=== PATIENT | female | born 1945 | race Caucasian/White ===

== ENCOUNTER 2016-08-04 05:27 | Inpatient (IN) | payer MEDICARE, OTHER ==
[~2016-08-04 05:27] MED LIST: FENOFIBRIC ACI135 M1 PO; LISINOPRIL-HCT1 EAC3 PO; MAGNESIUM OXID400 M1 PO; MULTIVITAMINS1 EAC6 PO; PROTONIX40 M2 PO; ROSUVASTATIN CA20 MG PO; VITAMIN D31000 UNI3 PO
[2016-08-04 06:37] LABS: ANION GAP 13 mmol/L (0-20); BLOOD UREA NITROGEN 7 mg/dl (6-24); CALCIUM 8.9 mg/dl (8.5-10.5); CARBON DIOXIDE-VENOUS 24 mmol/L (22-32); CHLORIDE 96 mmol/l (96-110); GLUCOSE 127 mg/dL (70-110); POTASSIUM 3.5 mmol/L (3.7-5.1); SODIUM 129 mmol/L (135-145); eGFR VALUE FOR BLACK 87 mL/Min
--- NOTE | 2016-08-04 20:33 | NUR ---
VN ROUNDING DEFERRED PATIENT IS SLEEPING AT THIS TIME AND THE DO NOT DISTURB IS ON THE VN DIRECTORY FOR THIS ROOM. CHART REVIEW IN PROGRESS.
[2016-08-05 04:57] LABS: BASO % 0.1 % (0-2); EOS % 0.1 % (0-7); HCT-HEMATOCRIT 32.6 % (34.0-49.0); HGB-HEMOGLOBIN 11.2 gm/dl (12.0-15.5); IMMATURE GRANULOCYTES ABSOLUTE 0.02 tho/cmm (0-0.03); IMMATURE GRANULOCYTES PERCENT 0.2 % (0-0.3); LYMPH % 14.4 % (20-45); LYMPH ABSOLUTE COUNT 1.5 tho/cmm (0.8-4.5); MCHC MEAN CORPUSCULAR HGB CONC 34.4 % (32.0-36.0); MCV (MEAN CELL VOLUME) 84.5 fl (82.0-96.0); MEAN PLATELET VOLUME 9.1 cmc (9.4-12.4); MONO % 8.5 % (0-12); MONOCYTE ABSOLUTE COUNT 0.9 tho/cmm (0.0-1.2); NEUTROPHILS % 76.7 % (40-80); PLATELET COUNT 300 tho/cmm (150-450); RED BLOOD COUNT 3.86 mil/cmm (4.00-5.20); RED CELL DISTRIBUTION WIDTH 12.3 % (12.4-16.4); WHITE BLOOD COUNT 10.5 tho/cmm (4.0-10.0)
[2016-08-05 05:28] LABS: ANION GAP 11 mmol/L (0-20); BLOOD UREA NITROGEN 8 mg/dl (6-24); CALCIUM 8.3 mg/dl (8.5-10.5); CARBON DIOXIDE-VENOUS 26 mmol/L (22-32); CHLORIDE 102 mmol/l (96-110); CREATININE 0.83 mg/dl (0.50-1.10); GLUCOSE 132 mg/dL (70-110); SODIUM 134 mmol/L (135-145); eGFR VALUE FOR BLACK 83 mL/Min
[2016-08-05 05:30] LABS: POTASSIUM 4.5 mmol/L (3.7-5.1)
[2016-08-07 05:40] LABS: ANION GAP 9 mmol/L (0-20); BLOOD UREA NITROGEN 3 mg/dl (6-24); CALCIUM 8.3 mg/dl (8.5-10.5); CARBON DIOXIDE-VENOUS 29 mmol/L (22-32); CHLORIDE 105 mmol/l (96-110); CREATININE 0.59 mg/dl (0.50-1.10); GLUCOSE 133 mg/dL (70-110); POTASSIUM 4.2 mmol/L (3.7-5.1); SODIUM 139 mmol/L (135-145); eGFR VALUE FOR BLACK >90 mL/Min
--- NOTE | 2016-08-08 20:12 | NUR ---
VN ROUNDING/LEADER ROUNDING NOTE-PATIENT LAYING IN BED WITH PAIN STAYING CONTROLLED. DAUGHTER IS AT HER BEDSIDE. STATES THE HEADACHE IS BETTER. PATIENT HAS NO CONCERNS OR QUESTIONS. HOPING SHE GOES HOME TOMORROW. I SAID THAT MAYBE BUT SHE IS STILL ONLY ON CLEAR LIQUIDS SO IT MAY BE CLOSER TO WEDNESDAY. SHE HAS HAD GAS BUT NO BM. CHART REVIEWED.
[2016-08-09 05:18] LABS: BASO % 0.8 % (0-2); BASO ABSOLUTE COUNT 0.1 tho/cmm (0.0-0.2); EOSINOPHIL ABSOLUTE COUNT 0.5 tho/cmm (0.0-0.7); HCT-HEMATOCRIT 32.4 % (34.0-49.0); HGB-HEMOGLOBIN 11.3 gm/dl (12.0-15.5); IMMATURE GRANULOCYTES ABSOLUTE 0.02 tho/cmm (0-0.03); IMMATURE GRANULOCYTES PERCENT 0.3 % (0-0.3); LYMPH % 31.3 % (20-45); LYMPH ABSOLUTE COUNT 2.2 tho/cmm (0.8-4.5); MCH (MEAN CORPUSCULAR HGB) 29.4 pg (28.0-32.0); MCHC MEAN CORPUSCULAR HGB CONC 34.9 % (32.0-36.0); MCV (MEAN CELL VOLUME) 84.2 fl (82.0-96.0); MEAN PLATELET VOLUME 8.8 cmc (9.4-12.4); MONO % 8.8 % (0-12); MONOCYTE ABSOLUTE COUNT 0.6 tho/cmm (0.0-1.2); NEUTROPHIL ABSOLUTE COUNT 3.7 tho/cmm (1.6-8.0); NEUTROPHIL-AUTOMATED 3.7 tho/cmm (1.6-8.0); NEUTROPHILS % 51.8 % (40-80); PLATELET COUNT 373 tho/cmm (150-450); RED BLOOD COUNT 3.85 mil/cmm (4.00-5.20); RED CELL DISTRIBUTION WIDTH 12.2 % (12.4-16.4); WHITE BLOOD COUNT 7.1 tho/cmm (4.0-10.0)
[2016-08-09 05:37] LABS: ANION GAP 10 mmol/L (0-20); BLOOD UREA NITROGEN 3 mg/dl (6-24); CALCIUM 8.9 mg/dl (8.5-10.5); CARBON DIOXIDE-VENOUS 27 mmol/L (22-32); CHLORIDE 111 mmol/l (96-110); CREATININE 0.75 mg/dl (0.50-1.10); GLUCOSE 125 mg/dL (70-110); POTASSIUM 4.4 mmol/L (3.7-5.1); SODIUM 144 mmol/L (135-145); eGFR VALUE FOR BLACK >90 mL/Min
[2016-08-10 10:29] LABS: BASO % 0.7 % (0-2); BASO ABSOLUTE COUNT 0.1 tho/cmm (0.0-0.2); EOS % 4.8 % (0-7); EOSINOPHIL ABSOLUTE COUNT 0.5 tho/cmm (0.0-0.7); HCT-HEMATOCRIT 41.2 % (34.0-49.0); HGB-HEMOGLOBIN 14.2 gm/dl (12.0-15.5); IMMATURE GRANULOCYTES ABSOLUTE 0.06 tho/cmm (0-0.03); IMMATURE GRANULOCYTES PERCENT 0.6 % (0-0.3); LYMPH % 25.6 % (20-45); LYMPH ABSOLUTE COUNT 2.6 tho/cmm (0.8-4.5); MCHC MEAN CORPUSCULAR HGB CONC 34.5 % (32.0-36.0); MCV (MEAN CELL VOLUME) 84.1 fl (82.0-96.0); MEAN PLATELET VOLUME 9.1 cmc (9.4-12.4); MONO % 8.9 % (0-12); MONOCYTE ABSOLUTE COUNT 0.9 tho/cmm (0.0-1.2); NEUTROPHILS % 59.4 % (40-80); PLATELET COUNT 471 tho/cmm (150-450); RED CELL DISTRIBUTION WIDTH 12.3 % (12.4-16.4); WHITE BLOOD COUNT 10.1 tho/cmm (4.0-10.0)
[2016-08-10 10:41] LABS: ANION GAP 13 mmol/L (0-20); BLOOD UREA NITROGEN 11 mg/dl (6-24); CALCIUM 9.5 mg/dl (8.5-10.5); CARBON DIOXIDE-VENOUS 26 mmol/L (22-32); CHLORIDE 107 mmol/l (96-110); GLUCOSE 142 mg/dL (70-110); POTASSIUM 4.2 mmol/L (3.7-5.1); SODIUM 142 mmol/L (135-145); eGFR VALUE FOR BLACK 56 mL/Min
[2016-08-10 10:44] LABS: CREATININE 1.16 mg/dl (0.50-1.10)
--- NOTE | 2016-08-10 16:35 | NUR ---
VIRTUAL CARE NOTE: ATTEMPTED TO ROUND W/ PT AT THIS TIME, HOWEVER, SHE IS WATCHING A TV PROGRAM AND REQUESTS A VISIT AT A LATER TIME. WILL MONITOR. ELECTRONIC CHART REVIEWED.
--- NOTE | 2016-08-10 19:15 | NUR ---
VIRTUAL CARE NOTE: PT. REQUEST THIS NURSE TO CHECK ON HER LATER DUE A FAVORITE TV WAS ON. REQUEST GRANTED. WILL CONTINUE TO MONITOR.
--- NOTE | 2016-08-11 22:30 | NUR ---
VIRTUAL CARE NOTE: PT. WALKING WITH FAMILY IN THE HALLWAYS THIS NURSE WAS ON THE UNIT. STATES WAS DOING WELL. INSTRUCTED TO CALL US FOR FURTHER NEEDS. STATES VERBAL AGREEMENT.
[2016-08-12 05:10] LABS: ANION GAP 13 mmol/L (0-20); BLOOD UREA NITROGEN 7 mg/dl (6-24); CALCIUM 9.3 mg/dl (8.5-10.5); CARBON DIOXIDE-VENOUS 25 mmol/L (22-32); CHLORIDE 108 mmol/l (96-110); CREATININE 0.77 mg/dl (0.50-1.10); GLUCOSE 107 mg/dL (70-110); SODIUM 142 mmol/L (135-145); eGFR VALUE FOR BLACK >90 mL/Min
[2016-08-14 04:50] LABS: ANION GAP 12 mmol/L (0-20); BLOOD UREA NITROGEN 8 mg/dl (6-24); CALCIUM 9.4 mg/dl (8.5-10.5); CARBON DIOXIDE-VENOUS 27 mmol/L (22-32); CHLORIDE 107 mmol/l (96-110); CREATININE 0.86 mg/dl (0.50-1.10); GLUCOSE 123 mg/dL (70-110); SODIUM 142 mmol/L (135-145); eGFR VALUE FOR BLACK 80 mL/Min
--- NOTE | 2016-08-14 16:11 | NUR ---
VIRTUAL CARE NOTE: PT STATES SHE IS HAVING AN AWFUL DAY, STATES SHE IS TERRIBLY NAUSEATED TODAY. ORDER REVIEWED NGT PRN VOMITING DISCUSSED W/ PT. PT RELUCTANT TO HAVE NGT. PT VOICES CONCERN THAT DR GOVEA IS OFF FOR THE WEEKEND AND WOULD LIKE TO KNOW WHO WILL BE OVERSEEING HER CARE- OFFICE CALLED TO CHECK ONCALL PROVIDER- PT INFORMED. DISCUSSED IMPORTANCE OF AMBULATION TO STIMULATE GI MOTILITY. QUESTIONS AND CONCERNS ADDRESSED, PT DENIES FURTHER QUESTIONS/CONCERNS AT THIS TIME. VN WILL CONTINUE TO MONITOR RECORD AND FOLLOW W/ PT
[2016-08-16 11:15] LABS: BASO % 0.7 % (0-2); BASO ABSOLUTE COUNT 0.1 tho/cmm (0.0-0.2); EOS % 3.1 % (0-7); EOSINOPHIL ABSOLUTE COUNT 0.2 tho/cmm (0.0-0.7); HCT-HEMATOCRIT 31.2 % (34.0-49.0); HGB-HEMOGLOBIN 10.4 gm/dl (12.0-15.5); IMMATURE GRANULOCYTES ABSOLUTE 0.02 tho/cmm (0-0.03); IMMATURE GRANULOCYTES PERCENT 0.3 % (0-0.3); LYMPH % 21.6 % (20-45); LYMPH ABSOLUTE COUNT 1.6 tho/cmm (0.8-4.5); MCH (MEAN CORPUSCULAR HGB) 29.2 pg (28.0-32.0); MCHC MEAN CORPUSCULAR HGB CONC 33.3 % (32.0-36.0); MCV (MEAN CELL VOLUME) 87.6 fl (82.0-96.0); MEAN PLATELET VOLUME 8.9 cmc (9.4-12.4); MONO % 8.1 % (0-12); MONOCYTE ABSOLUTE COUNT 0.6 tho/cmm (0.0-1.2); NEUTROPHIL ABSOLUTE COUNT 4.9 tho/cmm (1.6-8.0); NEUTROPHIL-AUTOMATED 4.9 tho/cmm (1.6-8.0); NEUTROPHILS % 66.2 % (40-80); PLATELET COUNT 442 tho/cmm (150-450); RED BLOOD COUNT 3.56 mil/cmm (4.00-5.20); RED CELL DISTRIBUTION WIDTH 12.5 % (12.4-16.4); WHITE BLOOD COUNT 7.5 tho/cmm (4.0-10.0)
[2016-08-16 11:23] LABS: ANION GAP 11 mmol/L (0-20); BLOOD UREA NITROGEN 11 mg/dl (6-24); CALCIUM 9.8 mg/dl (8.5-10.5); CARBON DIOXIDE-VENOUS 30 mmol/L (22-32); CHLORIDE 107 mmol/l (96-110); CREATININE 1.12 mg/dl (0.50-1.10); GLUCOSE 119 mg/dL (70-110); MAGNESIUM 1.8 mg/dl (1.8-2.6); POTASSIUM 4.2 mmol/L (3.7-5.1); SODIUM 144 mmol/L (135-145); eGFR VALUE FOR BLACK 58 mL/Min
--- NOTE | 2016-08-16 18:55 | NUR ---
VIRTUAL CARE NOTE: REVIEWED PLAN OF CARE WITH PT. DAUGHTER IN ROOM. THEY WERE PLANNING ON GOING FOR A WALK. PT HAS EATEN WHAT SOUNDS LIKE A FEW MEALS OF SOLID FOOD TODAY AND IS DOING OK. STILL BLOATED, BUT NOT WORSE. HAD A BM. WE DICUSSED THE NG TO HELP DECOMPRESS. SHE WAS FEELING SOMEWHAT MORE AGREEABLE TO THIS IF IT WILL HELP HER GET HOME. SHE WILL TALK WITH DR. GOVEA ABOUT IT TOMORROW. JOÃO ORDERED LABS, SAID HE WOULD ALSO WAIT FOR XUAN TO SEE IF HE WANTED ANOTHER XRAY. PT DENIES ANY OTHER NEEDS OR CONCERNS. STATES OVERALL THINGS SEEM TO BE IMPROVING AND SHE IS READY TO GO HOME. ENCOURAGED FALL PRECAUTIONS AND TO NOTIFY STAFF FOR ANY NEEDS. PT V/U. WILL CONTINUE WITH CHART REVIEW.
[2016-08-18 05:32] LABS: ALB/GLOB RATIO 0.7 (0.8-2.0); ALBUMIN 2.7 g/dl (3.5-5.0); ALKALINE PHOSPHATASE 78 U/L (33-138); ALT/SGPT 36 U/L (12-78); ANION GAP 14 mmol/L (0-20); AST/SGOT 27 U/L (10-40); BILIRUBIN,TOTAL 0.4 mg/dl (0-1.5); BLOOD UREA NITROGEN 15 mg/dl (6-24); CALCIUM 8.7 mg/dl (8.5-10.5); CARBON DIOXIDE-VENOUS 27 mmol/L (22-32); CHLORIDE 106 mmol/l (96-110); CREATININE 1.27 mg/dl (0.50-1.10); MAGNESIUM 1.7 mg/dl (1.8-2.6); PHOSPHOROUS 5.7 mg/dl (2.5-4.9); POTASSIUM 4.1 mmol/L (3.7-5.1); PREALBUMIN 16.2 mg/dl (20.0-40.0); SODIUM 143 mmol/L (135-145); eGFR VALUE FOR BLACK 50 mL/Min
[2016-08-18 05:37] LABS: GLUCOSE 183 mg/dL (70-110)
--- NOTE | 2016-08-18 14:21 | NUR ---
1243-VIRTUAL NURSING NOTE-ROUNDING ON PATIENT. STATES CONTINUES TO HAVE PAIN RATING IT AT 7-8 IN STOMACH AREA. NOTIFIED RN. Parth ROMEO RN
[2016-08-19 06:46] LABS: BLOOD UREA NITROGEN 18 mg/dl (6-24); CARBON DIOXIDE-VENOUS 23 mmol/L (22-32); CHLORIDE 116 mmol/l (96-110); SODIUM 148 mmol/L (135-145)
[2016-08-19 06:48] LABS: ANION GAP 12 mmol/L (0-20); GLUCOSE 90 mg/dL (70-110)
[2016-08-19 06:49] LABS: CREATININE 0.57 mg/dl (0.50-1.10); eGFR VALUE FOR BLACK >90 mL/Min
[2016-08-19 06:50] LABS: CALCIUM 6.3 mg/dl (8.5-10.5)
--- NOTE | 2016-08-19 08:15 | NUR ---
0814-DR GOVEA NOTIFIED OF POTASSIUM AND CALCIUM LEVELS. HE SAID HE WOULD TAKE CARE OF THEM WHEN HE COMES IN THIS MORNING. Parth ROMEO RN
--- NOTE | 2016-08-19 20:30 | NUR ---
DORCAS THOMAS NOTE-VISITED WITH PATIENT AND SOME OF HER FAMILY. HAD A FEW LAUGHS AND TALKED ABOUT THE NG,EPIDURAL,AND SHE STATES SHE IS NOT WALKING EASILY SHE WAS BEFORE SURGERY. THE PAIN IS STAYING SOMEWHAT CONTROLLED WITH THE EPIDURAL BUT DAUGHTER STATES SHE STILL NEEDS MORPHINE Q 4 HOURS TOO. PATIENT ASKED IF I WOULD PHYSICALLY COME SEE HER TONIGHT AND I TOLD HER I WOULD TRY
[2016-08-20 05:48] LABS: ANION GAP 11 mmol/L (0-20); BLOOD UREA NITROGEN 19 mg/dl (6-24); CARBON DIOXIDE-VENOUS 30 mmol/L (22-32); CHLORIDE 105 mmol/l (96-110); CREATININE 0.68 mg/dl (0.50-1.10); GLUCOSE 110 mg/dL (70-110); POTASSIUM 3.7 mmol/L (3.7-5.1); SODIUM 142 mmol/L (135-145); eGFR VALUE FOR BLACK >90 mL/Min
[2016-08-20 05:50] LABS: CALCIUM 8.6 mg/dl (8.5-10.5)
--- NOTE | 2016-08-20 18:49 | NUR ---
VIRTUAL CARE NOTE: REVIEWED PLAN OF CARE WITH PT/SPOUSE. DENIES ANY CONCERNS OR COMPLAINTS AT THIS TIME. DENIES GAS BUT STILL FEELS BETTER THAN SHE DID PRIOR TO THE SECOND SURGERY. PT DENIED ANY MEDICATION QUESTIONS OR S/E. JUST VOICED SHE WAS READY TO GO HOME. SUPPORT GIVEN TO KEEP UP THE GOOD WORK WITH AMBULATION AND INCENTIVE. ENCOURAGED FALL PRECAUTIONS AND TO NOTIFY STAFF FOR ANY NEEDS. PT V/U. WILL CONTINUE WITH CHART REVIEW.
[2016-08-21 05:51] LABS: HGB-HEMOGLOBIN 8.4 gm/dl (12.0-15.5); PLATELET COUNT 556 tho/cmm (150-450)
[2016-08-21 06:02] LABS: ANION GAP 12 mmol/L (0-20); BLOOD UREA NITROGEN 17 mg/dl (6-24); CALCIUM 8.6 mg/dl (8.5-10.5); CARBON DIOXIDE-VENOUS 31 mmol/L (22-32); CHLORIDE 102 mmol/l (96-110); CREATININE 0.61 mg/dl (0.50-1.10); GLUCOSE 160 mg/dL (70-110); MAGNESIUM 1.9 mg/dl (1.8-2.6); PHOSPHOROUS 2.4 mg/dl (2.5-4.9); POTASSIUM 3.7 mmol/L (3.7-5.1); SODIUM 141 mmol/L (135-145); eGFR VALUE FOR BLACK >90 mL/Min
--- NOTE | 2016-08-21 11:32 | NUR ---
FAMILY VERY UPSET THAT PATIENT DOES NOT SEEM TO BE IMPROVING. PATIENT CONSTANTLY C/O PAIN OR ANXIETY. FAMILY REQUESTS SECOND SURGICAL OPINION. DR. GOVEA NURSE AWARE.
[2016-08-21 18:03] LABS: BASO % 0.3 % (0-2); EOS % 2.8 % (0-7); EOSINOPHIL ABSOLUTE COUNT 0.3 tho/cmm (0.0-0.7); HCT-HEMATOCRIT 26.5 % (34.0-49.0); HGB-HEMOGLOBIN 8.6 gm/dl (12.0-15.5); IMMATURE GRANULOCYTES ABSOLUTE 0.05 tho/cmm (0-0.03); IMMATURE GRANULOCYTES PERCENT 0.5 % (0-0.3); LYMPH % 11.5 % (20-45); LYMPH ABSOLUTE COUNT 1.1 tho/cmm (0.8-4.5); MCH (MEAN CORPUSCULAR HGB) 28.3 pg (28.0-32.0); MCHC MEAN CORPUSCULAR HGB CONC 32.5 % (32.0-36.0); MCV (MEAN CELL VOLUME) 87.2 fl (82.0-96.0); MEAN PLATELET VOLUME 9.8 cmc (9.4-12.4); MONO % 12.5 % (0-12); MONOCYTE ABSOLUTE COUNT 1.2 tho/cmm (0.0-1.2); NEUTROPHIL ABSOLUTE COUNT 6.7 tho/cmm (1.6-8.0); NEUTROPHIL-AUTOMATED 6.7 tho/cmm (1.6-8.0); NEUTROPHILS % 72.4 % (40-80); PLATELET COUNT 620 tho/cmm (150-450); RED BLOOD COUNT 3.04 mil/cmm (4.00-5.20); RED CELL DISTRIBUTION WIDTH 12.5 % (12.4-16.4); WHITE BLOOD COUNT 9.2 tho/cmm (4.0-10.0)
[2016-08-21 18:15] LABS: ALB/GLOB RATIO 0.9 (0.8-2.0); ALBUMIN 3.1 g/dl (3.5-5.0); ALKALINE PHOSPHATASE 77 U/L (33-138); ALT/SGPT 15 U/L (12-78); ANION GAP 11 mmol/L (0-20); AST/SGOT 12 U/L (10-40); BILIRUBIN,TOTAL 0.5 mg/dl (0-1.5); BLOOD UREA NITROGEN 14 mg/dl (6-24); C-REACTIVE PROTEIN 14.2 mg/dl (0-0.9); CARBON DIOXIDE-VENOUS 31 mmol/L (22-32); CHLORIDE 102 mmol/l (96-110); CREATININE 0.54 mg/dl (0.50-1.10); GLUCOSE 130 mg/dL (70-110); POTASSIUM 3.3 mmol/L (3.7-5.1); SODIUM 141 mmol/L (135-145); eGFR VALUE FOR BLACK >90 mL/Min
--- NOTE | 2016-08-21 21:24 | NUR ---
VIRTUAL CARE NOTE: ASSESSMENT DEFERRED. PT. SLEEPING.
[2016-08-22 06:21] LABS: ANION GAP 11 mmol/L (0-20); BLOOD UREA NITROGEN 12 mg/dl (6-24); CALCIUM 8.9 mg/dl (8.5-10.5); CARBON DIOXIDE-VENOUS 33 mmol/L (22-32); CHLORIDE 104 mmol/l (96-110); CREATININE 0.58 mg/dl (0.50-1.10); GLUCOSE 133 mg/dL (70-110); SODIUM 145 mmol/L (135-145); eGFR VALUE FOR BLACK >90 mL/Min
--- NOTE | 2016-08-22 16:10 | NUR ---
VIRTUAL CARE NOTE: PT AWAKE, RESTING IN BED, FAMILY AT BEDSIDE. PT VERBALIZES NOT HAVING A GOOD DAY. PT STATES PASSING VERY LITTLE GAS BUT HAD X2 LOOSE BMS TODAY. ENC PT TO AMBULATE. ENC IS 1X Q1H WAKE-PT ABLE TO DEMONSTRATE. ENCOURAGEMENT GIVEN. PT DENIES QUESTIONS/CONCERNS AT THIS TIME. VN WILL CONTINUE TO MONITOR RECORD AND FOLLOW W/ PT
--- NOTE | 2016-08-22 21:36 | NUR ---
VIRTUAL CARE NOTE: PT. IN BED WITH FAMILY AT SIDE. PT. STATES SHE'S JUST NOT FEELING THE BEST. VERBAL ENCOURAGEMENT GIVEN THAT SHE IS DOING ALL THAT SHE IS ABLE TO DO FOR IMPROVEMENT. INSTRUCTED TO CALL FOR FURTHER NEEDS. STATES VERBAL AGREEMENT.
[2016-08-23 06:21] LABS: HGB-HEMOGLOBIN 9.9 gm/dl (12.0-15.5); PLATELET COUNT 708 tho/cmm (150-450)
[2016-08-23 06:33] LABS: ANION GAP 12 mmol/L (0-20); BLOOD UREA NITROGEN 14 mg/dl (6-24); CARBON DIOXIDE-VENOUS 32 mmol/L (22-32); CHLORIDE 102 mmol/l (96-110); CREATININE 0.57 mg/dl (0.50-1.10); GLUCOSE 138 mg/dL (70-110); PHOSPHOROUS 3.8 mg/dl (2.5-4.9); SODIUM 143 mmol/L (135-145); eGFR VALUE FOR BLACK >90 mL/Min
[2016-08-23 06:38] LABS: POTASSIUM 2.8 mmol/L (3.7-5.1)
--- NOTE | 2016-08-23 14:22 | NUR ---
VIRTUAL CARE NOTE: PT AWAKE, RESTING IN BED, FAMILY AT BEDSIDE. PT VERBALIZES STILL FEELING VERY DISTENDED AND UNCOMFORTABLE, RATES 4-5/10 STATES TOLERABLE. DISCUSSED PAIN MANAGEMENT. ENC PT TO CONT W/ CDB/IS Q1H WA. PT/FAMILY QUESTION IF PT COULD HAVE P.T./O.T FOR STRENGTHENING, PT STATES SHE IS FEELING INCREASINGLY WEAK. WILL DISCUSS W/ NURSING TO DISCUSS W/ DR GOVEA TOMORROW. PT DENIES OTHER QUESTIONS/CONCERNS AT THIS TIME. VN WILL CONTINUE TO MONITOR RECORD AND FOLLOW W/ PT
--- NOTE | 2016-08-23 19:13 | NUR ---
VIRTUAL CARE NOTE: PT. IN BED WITH DAUGHTER AT HER SIDE. STATES IS UNCOMFORTABLE BUT WAS THINKING ABOUT WANTING HER MEDS AT BEDTIME. DAUGHTER STATES THE PT. IS REALLY RESTLESS. EDUCATION PROVIDED TO THE PT. THAT WE CAN GIVE HER SOMETHING TO HELP GET HER MORE COMFORTABLE AT THIS TIME SO SHE WOULD BE ABLE TO COUGH AND DEEP BREATHE AND AMBULATE BETTER. PT. THEN AGREES. ALSO EDUCATED THAT THE DR. DOES HAVE SOME MEDICATIONS FOR SLEEP TONIGHT. DAUGHTER AND PT. ARE REQUESTING PT/OT DUE TO THE PT. BEING WEAK. WILL ASK TO PASS THIS INFORMATION ON IN THE AM. DENIES FURTHER QUESTIONS OR NEEDS AT THIS TIME. INSTRUCTED TO CALL FOR FUTURE NEEDS. STATES VERBAL AGREEMENT.
[2016-08-24 06:38] LABS: ANION GAP 11 mmol/L (0-20); BLOOD UREA NITROGEN 14 mg/dl (6-24); CALCIUM 8.8 mg/dl (8.5-10.5); CARBON DIOXIDE-VENOUS 29 mmol/L (22-32); CHLORIDE 104 mmol/l (96-110); CREATININE 0.64 mg/dl (0.50-1.10); GLUCOSE 145 mg/dL (70-110); POTASSIUM 3.4 mmol/L (3.7-5.1); SODIUM 141 mmol/L (135-145); eGFR VALUE FOR BLACK >90 mL/Min
--- NOTE | 2016-08-24 15:26 | NUR ---
VIRTUAL CARE NOTE: PT RESTING ON CHAIR. C/O SORE THROAT FROM NG TUBE. HAS ORDER FOR 4 OZ OF CLEAR Q 3-4HR, PT HAS NOT BEEN TAKING MUCH YET. PT REPORTS AMBULATING GOOD, HAS LOOSE STOOLS TODAY. PLAN OF CARE REVIEWED WITH PT, PT WOULD LIKE TO HAVE A DOSE OF IV TYLENOL AT THIS TIME, VN NOTIFIED FLOOR NURSE. PT DENIES FURTHER NEEDS.
[2016-08-25 06:18] LABS: HGB-HEMOGLOBIN 9.2 gm/dl (12.0-15.5); PLATELET COUNT 673 tho/cmm (150-450)
[2016-08-25 06:29] LABS: ALB/GLOB RATIO 0.9 (0.8-2.0); ALBUMIN 3.1 g/dl (3.5-5.0); ALKALINE PHOSPHATASE 122 U/L (33-138); ALT/SGPT 21 U/L (12-78); ANION GAP 14 mmol/L (0-20); AST/SGOT 27 U/L (10-40); BILIRUBIN,TOTAL 0.2 mg/dl (0-1.5); BLOOD UREA NITROGEN 16 mg/dl (6-24); CALCIUM 8.8 mg/dl (8.5-10.5); CARBON DIOXIDE-VENOUS 29 mmol/L (22-32); CHLORIDE 105 mmol/l (96-110); CREATININE 0.64 mg/dl (0.50-1.10); GLUCOSE 142 mg/dL (70-110); MAGNESIUM 2.1 mg/dl (1.8-2.6); PHOSPHOROUS 4.3 mg/dl (2.5-4.9); POTASSIUM 3.6 mmol/L (3.7-5.1); PREALBUMIN 20.5 mg/dl (20.0-40.0); SODIUM 144 mmol/L (135-145); eGFR VALUE FOR BLACK >90 mL/Min
--- NOTE | 2016-08-25 17:40 | NUR ---
VN ROUNDING NOTE-VISITED WITH PATIENT,SPOUSE, AND DAUGHTER. PATIENT SITTING UP AND AMBULATING IN ROOM. TOLERATING CLEARS AND WILL MOVE TO FULL LIQUIDS@DINNER. HAVING SOME PAIN AND THE NURSE JUST GAVE HER SOME PO PAIN MED. NO OTHER QUESTIONS OR CONCERNS AT THIS TIME.
--- NOTE | 2016-08-26 21:52 | NUR ---
VIRTUAL CARE NOTE: ASSESSMENT DEFERRED. PT. SLEEPING.
[2016-08-27 05:54] LABS: HGB-HEMOGLOBIN 8.8 gm/dl (12.0-15.5); PLATELET COUNT 503 tho/cmm (150-450)
[2016-08-27] MEDS ORDERED: ULTRAM50 M1 PO (08:59)
== END 2016-08-27 09:45 | DRG 330 ==
LOC: SHSB 05:27 → ORW 07:23 → PACU 09:09 → 5WD 10:55 → ORW 08-17 15:25 → PACU 08-17 16:44 → 5WD 08-17 19:35
PROVIDERS: Anesthesiology; Surgery; ADMIT Colon & Rectal Surgery
PROC: 0DTF0ZZ Resection of Right Large Intestine, Open Approach (ICD-10-PCS; principal; 2016-08-04)
PROC: 05H633Z Insertion of Infusion Device into Left Subclavian Vein, Percutaneous Approach (ICD-10-PCS; 2016-08-13)
PROC: 3E0436Z Introduction of Nutritional Substance into Central Vein, Percutaneous Approach (ICD-10-PCS; 2016-08-14)
PROC: 0DN80ZZ Release Small Intestine, Open Approach (ICD-10-PCS; 2016-08-17)
PROC: 0DQ80ZZ Repair Small Intestine, Open Approach (ICD-10-PCS; 2016-08-17)
PROC: 02HV33Z Insertion of Infusion Device into Superior Vena Cava, Percutaneous Approach (ICD-10-PCS; 2016-08-17)
DX: D12.6 Benign neoplasm of colon, unspecified (principal); K56.7 Ileus, unspecified; E44.0 Moderate protein-calorie malnutrition; K56.5 Intestinal adhesions [bands] with obstruction (postinfection); R18.8 Other ascites; K91.3 Postprocedural intestinal obstruction; J44.9 Chronic obstructive pulmonary disease, unspecified; I10 Essential (primary) hypertension; E78.5 Hyperlipidemia, unspecified; M79.1 Myalgia; M81.0 Age-related osteoporosis without current pathological fracture; F17.210 Nicotine dependence, cigarettes, uncomplicated; Y83.8 Other surgical procedures as the cause of abnormal reaction of the patient, or of later complication, without mention of misadventure at the time of the procedure; Z85.42 Personal history of malignant neoplasm of other parts of uterus; K21.9 Gastro-esophageal reflux disease without esophagitis; Z68.22 Body mass index [BMI] 22.0-22.9, adult; T88.59XA Other complications of anesthesia, initial encounter; G44.40 Drug-induced headache, not elsewhere classified, not intractable; T41.3X5A Adverse effect of local anesthetics, initial encounter; Y92.239 Unspecified place in hospital as the place of occurrence of the external cause; E87.6 Hypokalemia
CPT/HCPCS: C1751; C1765; C9113; G8978-GP-CH; G8979-GP-CH; G8980-GP-CH; J0131; J0610; J0690; J1170; J1200; J1630; J1650; J2060; J2250; J2270; J2405; J2543; J2765; J2795; J3010; J3480; J7050; J7121; P9047; Q9967